=== PATIENT | male | born 1985 | race Caucasian/White ===

== ENCOUNTER 2024-11-09 20:59 | Emergency (ER) | payer SELFPAY ==
[~2024-11-09] VITALS: Ht 180.3 cm; Wt 109.2 kg
[2024-11-09 21:02] VITALS: BP 174/95; TEMP 100.6; O2SAT 100
== END 2024-11-10 | disposition left against medical advice (07) ==
LOC: M ED 20:59
DX: Z53.21 Procedure and treatment not carried out due to patient leaving prior to being seen by health care provider (principal)